=== PATIENT | male | born 1985 | race Hispanic/Latino ===

== ENCOUNTER 2019-06-01 16:08 | Emergency (ER) | payer OTHER ==
[2019-06-01] MEDS ORDERED: TETRACAINE HCL 0.5% 4 ML OPHTH SOLN ONE (16:28)
[2019-06-01] MEDS ORDERED: FLUORESCEIN SODIUM 1 STRIP STRIP ONE (16:28)
== END 2019-06-01 17:18 | disposition home or self-care (01) ==
LOC: EDH 16:08
DX: T15.01XA Foreign body in cornea, right eye, initial encounter (principal); I10 Essential (primary) hypertension; Z87.891 Personal history of nicotine dependence; W26.8XXA Contact with other sharp object(s), not elsewhere classified, initial encounter; Y93.89 Activity, other specified; Y92.89 Other specified places as the place of occurrence of the external cause; Y99.8 Other external cause status
CPT/HCPCS: 65220